=== PATIENT | male | born 1965 | race Caucasian/White ===

== ENCOUNTER 2022-12-26 09:15 | Outpatient (CLI) | payer BC, SELFPAY | END 2022-12-26 09:16 | disposition home or self-care (01) | PROVIDERS: Visit Provider Family Medicine | DX: Z00.00 Encounter for general adult medical examination without abnormal findings (principal); E78.2 Mixed hyperlipidemia; R03.0 Elevated blood-pressure reading, without diagnosis of hypertension; Z13.1 Encounter for screening for diabetes mellitus | CPT/HCPCS: 80053; 80061; 82043; 82570; 84153 ==

== ENCOUNTER 2023-12-31 11:15 | Outpatient (RCR) | payer BC, SELFPAY | END 2024-04-29 23:59 | disposition home or self-care (01) | PROVIDERS: Visit Provider Family Medicine | DX: M54.50 Low back pain, unspecified (principal); R26.9 Unspecified abnormalities of gait and mobility; M62.81 Muscle weakness (generalized); Z51.89 Encounter for other specified aftercare | CPT/HCPCS: 97012; 97110; 97140; 97162 ==

== ENCOUNTER 2024-02-14 15:13 | Outpatient (CLI) | payer BC, SELFPAY ==
--- NOTE | 2024-02-14 15:30 | CRLHL7_ITS ---
For Patients: As a result of the Century Cures Act, medical imaging exams and procedure reports are released immediately into your electronic medical record. You may view this report before your referring provider. If you have questions, please contact your health care provider. INDICATION: Back pain. Left leg pain. TECHNIQUE : Lumbar spine MRI without contrast. COMPARISON: None. FINDINGS : Five lumbar type vertebral bodies, with the last fully formed disc space designated as L5-S1. Normal lumbar lordotic curve. No recent compression fracture or marrow replacing process. Lower cord/conus signal is normal. The conus terminates at a normal location. No intradural lesion. No extraspinal soft tissue abnormalities. Discs/Endplates: At L5-S1, advanced disc height loss/disc desiccation. At L3-4 and L4-5, moderate disc height loss and disc desiccation. Mild disc height loss and Schmorl`s nodes at T11-12 and T12-L1. Exuberant type 1 reactive marrow changes L3-4. Findings at individual levels as follows: T11-12: No spinal canal or neural foraminal stenosis. T12-L1: No spinal canal or neural foraminal stenosis. L1-2: No spinal canal or neural foraminal stenosis. L2-3: Minimal disc bulge. Bilateral facet arthrosis. No spinal canal or neural foraminal stenosis. L3-4: Moderate disc bulge with osteophytic ridging, asymmetric to the right. Bilateral facet arthrosis. A superimposed 7 millimeter left central/subarticular disc extrusion with 18 millimeters caudal migration. Impingement of the traversing left L4 nerve root. Mild spinal canal stenosis and mild bilateral neural foraminal stenosis. L4-5: A broad-based central disc extrusion with slight caudal migration. Contact of the traversing left L5 nerve root. Bilateral facet arthrosis. Mild spinal canal stenosis and mild bilateral neural foraminal stenosis. L5-S1: Moderate disc bulge with underlying osteophytic ridging, asymmetric to the right. Bilateral low-grade facet arthrosis. Mild bilateral neural foraminal stenosis. No spinal canal stenosis. Imaged SI joints: Within normal limits. Imaged sacrum: Within normal limits. IMPRESSION: 1. At L3-4, a left central/subarticular disc extrusion with caudal migration impinges the traversing left L4 nerve root. 2. At L4-5, a shallow central disc extrusion with slight caudal migration contacts the traversing left L5 nerve root. 3. Scattered spondylosis elsewhere without high-grade spinal canal/neural foraminal stenosis or impingement of neural structures. 4. Widespread lumbar disc degeneration with prominent type 1 reactive marrow changes at the L3-4 level. Dictated by Carl Wisdom MD @ 02/15/2024 7:05:23 PM (Electronically Signed)
== END 2024-02-14 15:14 | disposition home or self-care (01) ==
LOC: MRI 15:16
PROVIDERS: Visit Provider Family Medicine
DX: M54.50 Low back pain, unspecified (principal); M51.26 Other intervertebral disc displacement, lumbar region; M51.36 Other intervertebral disc degeneration, lumbar region; M79.605 Pain in left leg
CPT/HCPCS: 72148